=== PATIENT | female | born 1985 | race Two or more races ===

== ENCOUNTER 2022-12-11 10:14 | Emergency (ER) | payer BC ==
[~2022-12-11] VITALS: Ht 172.7 cm; Wt 100.7 kg
[2022-12-11] MEDS ORDERED: HUMIRA40 MG/0.2 (10:26)
== END 2022-12-11 13:30 | disposition home or self-care (01) ==
LOC: ER 10:14
DX: S92.351A Displaced fracture of fifth metatarsal bone, right foot, initial encounter for closed fracture (principal); W19.XXXA Unspecified fall, initial encounter; Y93.9 Activity, unspecified; Y92.9 Unspecified place or not applicable